=== PATIENT | male | born 1975 | race Caucasian/White ===

== ENCOUNTER 2019-09-08 15:06 | Emergency (ER) | payer MEDICAID, SELFPAY ==
[2019-09-08 15:09] VITALS: BP 161/90; PULSE 114; RESP 20; TEMP 36.8; O2SAT 96; BMI 21.4
--- NOTE | 2019-09-08 15:21 | RAD_ITS ---
STUDY: X-RAY CHEST REASON FOR EXAM: Male, 43 years old. Chest pain, weakness TECHNIQUE: Single AP portable view of the chest. COMPARISON: None. FINDINGS: The lungs are clear and expanded. Scattered calcified granulomas. There is no demonstrated pleural abnormality. Normal size heart. Normal mediastinum and les. Normal visualized pulmonary arteries. Normal visualized aortic arch and descending thoracic aorta. Normal visualized thoracic spine. Normal visualized ribs, clavicles, and shoulders. There is no demonstrated abnormality of the visualized soft tissue structures of the upper abdomen. RAD/Chest 1 View (Portable) IMPRESSION: Normal x-ray examination of the chest. Electronically Signed: Sal Freitas, at 15:50 EDT , Service support ,
--- NOTE | 2019-09-08 15:22 | EKG12_ITS ---
Test Reason : NUMBNESS Blood Pressure : / mmHG Vent. Rate : 090 BPM Atrial Rate : 090 BPM P-R Int : 132 ms QRS Dur : 080 ms QT Int : 352 ms P-R-T Axes : 077 034 046 degrees QTc Int : 430 ms Normal sinus rhythm Normal ECG Confirmed by LISA ADAMS, WILLEM ([id number]), commercial production editor PEE FIGUEROA ([id number]) on 09/15/2019 11:11:01 AM Referred By: KAMERON Confirmed By:ADITYA GONZALEZ MD
--- NOTE | 2019-09-08 15:24 | ED.DCSUM_ITS ---
History of Present Illness Chief Complaint: Weakness Informant: Patient Narrative: Resents with multiple complaints. In April he was having multiple nights of night sweats followed by chest pain with radiation down his left arm. He was admitted to the hospital in [place] and had a cardiac work-up that was unremarkable. He had a normal stress test at that time. Patient states since then has had intermittent pain in his chest. Over the past week he has noted throat tightness and he has a raw feeling or numbness over his chest. He is also complaining of some bilateral groin pain. He is concerned because his grandfather of kidney failure. He does report having a fever, but when asked T-max is 99.3. He is scheduled to see a new PCP in 2 days. Past Medical History - Allergies and Home Meds Allergies/Adverse Reactions: Allergies acetaminophen [From Vicodin] Adverse Reaction (Verified 09/08/19 15:09) Nausea hydrocodone [From Vicodin] Adverse Reaction (Verified 09/08/19 15:09) Nausea Past Medical History: None Lives: Spouse/ Significant Other Review of Systems General: Reports: Fever - T-max equals 99.3. Denies: Chills Eyes: Denies: Visual changes - bilaterally ENT: Denies: Bilateral ear pain Cardiovascular: Reports: Chest pain Respiratory: Denies: Dyspnea, Cough Gastrointestinal: Reports: Abdominal pain - Intermittent bilateral groin pain. Denies: Vomiting, Diarrhea Genitourinary: Denies: Dysuria, Hematuria Musculoskeletal: Denies: Swelling, Extremity Pain Skin: Denies: Rash Neurological: Denies: Headache Allergy: Denies: Uticaria Physical Exam Vital Signs/Narrative: Vital Signs Temp Pulse Resp BP Pulse Ox 09/08/19 15:09 98.2 F 114 H 20 H 161/90 H 96 Inital Vital Signs reviewed: Yes General: Well nourished, Well developed Head: Normocephalic ENT: Moist mucous membranes, TM's clear, - - Mild posterior pharyngeal erythema. Uvula midline. Neck: Supple Cardiovascular: Regular rate, Regular rhythm Respiratory: No distress, CTA bilaterally, Chest tenderness - Mild chest wall tenderness over the left and right upper chest wall. No crepitus. Abdomen: Soft, Nontender Extremities: Nontender Skin: Normal color, No rash Neurological: Alert, Oriented x3, Normal Strength, Normal Sensation Psychological: Normal affect Diagnostic/Tx/Re-eval Impressions Chest X-Ray 09/08/19 15:21 IMPRESSION: Normal x-ray examination of the chest. Electronically Signed: Sal Freitas, at 15:50 EDT , Service support , 09/08/19 15:21 Chest 1 View (Portable) [RAD] Stat 09/08/19 15:48 Mucosa - Throat Group A Streptococcus Rapid Screen - Final Streptococcus Group A Laboratory Results 09/08/19 09/08/19 15:40 15:40 WBC 9.1 RBC 5.32 Hgb 15.1 Hct 45.2 MCV 85.0 MCH 28.4 MCHC 33.4 RDW Std Deviation 39.4 RDW Coeff of Conor 12.7 Plt Count 260 MPV 9.2 Immature Gran % (Auto) 0.200 Neut % (Auto) 81.2 H Lymph % (Auto) 12.6 L Hancock % (Auto) 5.5 Eos % (Auto) 0.2 Baso % (Auto) 0.3 Absolute Neuts (auto) 7.4 Absolute Lymphs (auto) 1.14 Nucleated RBC % 0 ESR 20 H Sodium 138 Potassium 3.7 Chloride 104 Carbon Dioxide 27.0 Anion Gap 7 BUN 10 Creatinine 0.79 Estim Creat Clear Calc 91.86 Est GFR (MDRD) Af Amer 136 Est GFR (MDRD) Non-Af 112 BUN/Creatinine Ratio 12.7 Glucose 91 Calcium 8.9 Troponin I < 0.015 C-React Prot Ext Range 15.00 H - EKG Initial EKG Interpretation: Sinus Rhythm - Sinus at 90 with no acute ischemia. - Medical Decision Making Patient is given IV fluids. Test results discussed with patient and at bedside. Strep test is positive. He will be given amoxicillin x10 days. He will follow-up with Dr. Lu in 2 days as scheduled. ED Disposition - Plan for ED Patient: Disposition: Home or Assisted Living Diagnosis: Strep pharyngitis Instructions: PHARYNGITIS, Strep (Confirmed) Prescriptions: Amoxicillin 500 mg PO BID #20 tab Transmission Status: Pending to [facility] Referrals: Juan Lu MD [Primary Care Provider] - Keep F[facility] appointment
[2019-09-08 15:38] VITALS: PULSE 98; RESP 16; O2SAT 94
[2019-09-08] MEDS: 0.9% Normal Saline 1,000 ML 150 ML IV (15:43)
[2019-09-08 16:01] LABS: Absolute Lymphocyte Count 1.14 X10^3/uL (0.83-4.51); Absolute Neutrophil Count 7.4 X10^3/uL (2.0-7.7); Basophil# 0.03 X10^3/uL; Basophil% 0.3 % (0-1); Eosinophil# 0.02 X10^3/uL; Eosinophils% 0.2 % (0-5); Hematocrit 45.2 % (40-54); Hemoglobin 15.1 g/dL (13.0-16.5); Lymphocyte # 1.14 X10^3/ul (4.0); Lymphocyte % 12.6 % (19-41); Mean Corp Hgb Conc 33.4 g/dL (32-36); Mean Corpuscular Hgb 28.4 pg (27.0-32.0); Mean Platelet Vol. 9.2 fl (6.2-12.0); Monocyte% 5.5 % (0-10); NRBC Flagged by Analyzer 0 % (0-5); Neutrophil # 7.37 X10^3/uL (2.7-7.7); Neutrophil % 81.2 % (47-70); Platelet Count 260 K/mm3 (150-450); RBC Distribution Width CV 12.7 % (11.6-14.6); RBC Distribution Width SD 39.4 fl (35.1-43.9); Red Blood Count 5.32 M/mm3 (4.6-6.2); White Blood Count 9.1 K/mm3 (4.4-11.0)
[2019-09-08 16:14] LABS: Anion Gap 7 (5-15); BUN 10 mg/dL (7-18); BUN/Creat Ratio 12.7 RATIO (10-20); Calcium,Total 8.9 mg/dL (8.5-10.1); Chloride 104 mmol/L (98-107); Creatinine, Serum 0.79 mg/dL (0.70-1.30); EST Glomerular Filtration Rate 112 mL/min (>60); Est Glom Filt Rate - Afr Amer 136 mL/min (>60); Estimated Creatinine Clearance 91.86 ml/min; Glucose 91 mg/dL (74-106); Potassium 3.7 mmol/L (3.5-5.1); Sodium Level 138 mmol/L (136-145)
[2019-09-08 16:35] LABS: Erythrocyte Sedimentation Rate 20 mm/hr (0-15)
[2019-09-08 17:34] VITALS: BP 128/86; PULSE 89; RESP 17; O2SAT 96
--- NOTE | 2019-09-08 17:34 | ED.RN ---
PER DR. PÉERZ SEPSIS SCREEN D/C.
[2019-09-08] MEDS: AMOXICILLIN 500 MG CAPSULE PO (17:38)
== END 2019-09-08 17:43 | disposition home or self-care (01) ==
PROVIDERS: Emergency Provider Emergency Medicine; PCP Family Medicine
DX: J02.0 Streptococcal pharyngitis (principal); R07.9 Chest pain, unspecified; R61 Generalized hyperhidrosis; R10.31 Right lower quadrant pain; R10.32 Left lower quadrant pain; R20.0 Anesthesia of skin; Z88.5 Allergy status to narcotic agent
CPT/HCPCS: 71045; 80048; 84484; 85025; 85652; 86140; 87880; 93005; 96360; 96361; 99285; J7030

== ENCOUNTER → 2019-10-13 10:54 | Outpatient (CLI) | payer OTHER, SELFPAY ==
[2019-10-13 12:03] LABS: Erythrocyte Sedimentation Rate 6 mm/hr (0-15)
[2019-10-13 12:04] LABS: Absolute Lymphocyte Count 1.27 X10^3/uL (0.83-4.51); Basophil# 0.04 X10^3/uL; Basophil% 0.8 % (0-1); Eosinophil# 0.13 X10^3/uL; Eosinophils% 2.7 % (0-5); Hematocrit 44.7 % (40-54); Hemoglobin 14.9 g/dL (13.0-16.5); Lymphocyte # 1.27 X10^3/ul (4.0); Mean Corp Hgb Conc 33.3 g/dL (32-36); Mean Corpuscular Hgb 28.8 pg (27.0-32.0); Mean Corpuscular Volume 86.5 fL (80-94); Mean Platelet Vol. 9.6 fl (6.2-12.0); Monocyte# 0.39 X10^3/uL; NRBC Flagged by Analyzer 0 % (0-5); Neutrophil # 3.04 X10^3/uL (2.7-7.7); Neutrophil % 62.3 % (47-70); Platelet Count 247 K/mm3 (150-450); RBC Distribution Width CV 12.7 % (11.6-14.6); RBC Distribution Width SD 40.4 fl (35.1-43.9); Red Blood Count 5.17 M/mm3 (4.6-6.2); White Blood Count 4.9 K/mm3 (4.4-11.0)
[2019-10-13 12:29] LABS: ALB/GLOB Ratio 0.9 RATIO (0.9-2.4); AST(SGOT) 26 U/L (15-37); Alanine Aminotransfer ALT/SGPT 34 U/L (16-61); Albumin, Serum 3.7 g/dL (3.2-5.0); Alkaline Phosphatase 94 U/L (45-117); Anion Gap 7 (5-15); BUN 15 mg/dL (7-18); BUN/Creat Ratio 15.3 RATIO (10-20); CRP < 2.90 mg/L (0.0-3.0); Calcium,Total 8.9 mg/dL (8.5-10.1); Chloride 106 mmol/L (98-107); Creatinine, Serum 0.98 mg/dL (0.70-1.30); EST Glomerular Filtration Rate 88 mL/min (>60); Est Glom Filt Rate - Afr Amer 106 mL/min (>60); Globulin 3.9 g/dL (2.2-4.2); Glucose 96 mg/dL (74-106); Protein, Total 7.6 g/dL (6.4-8.2); Sodium Level 140 mmol/L (136-145); Thyroid Stim Hormone (TSH) 1.17 uIU/mL (0.358-3.74)
[2019-10-14 15:46] LABS: ANTINUCLEAR ANTIBODIES DIRECT Negative (Negative)
== END ==
PROVIDERS: PCP Family Medicine; Referring Provider Family Medicine; Visit Provider Family Medicine
DX: R22.1 Localized swelling, mass and lump, neck (principal); R79.82 Elevated C-reactive protein (CRP); R61 Generalized hyperhidrosis
CPT/HCPCS: 36415; 80053; 84403; 84443; 85025; 85652; 86038; 86140

== ENCOUNTER → 2019-12-22 15:15 | Outpatient (CLI) | payer OTHER, SELFPAY ==
--- NOTE | 2019-12-22 15:25 | RAD_ITS ---
STUDY: X-RAY - PELVIS AND RIGHT HIP REASON FOR EXAM: Male, 44 years old. RIGHT HIP PAIN. FALL DOWN STAIRS X 15 YEARS AGO TECHNIQUE: 3 views of the pelvis and hip. COMPARISON: None. FINDINGS: There is a non-specific bowel gas pattern. Normal visualized soft tissue structures. Normal bilateral iliac wings, sacroiliac joints and visualized sacrum. Normal bilateral superior and inferior pubic rami. Normal pubic symphysis. Normal bilateral ischial tuberosities. Normal visualized femoral head. Normal acetabulum. Normal hip joint. RAD/HIP, UNI W/ Pelvis 2-3 Views IMPRESSION: Normal x-ray examination of the pelvis and hip. Electronically Signed: Shayan Mccurdy MD at 16:14 EDT , Service support ,
--- NOTE | 2019-12-22 15:25 | RAD_ITS ---
STUDY: X-RAY - LUMBAR SPINE REASON FOR EXAM: Male, 44 years old. CHRONIC LOWER BACK PAIN. FALL DOWN STAIRS X 15 YEARS AGO TECHNIQUE: 5 view(s) of the lumbar spine were obtained. COMPARISON: None FINDINGS: Normal lumbar lordosis. There is no substantial scoliosis. There is a normal alignment of the vertebrae. There is mild endplate spondylosis of L4 and L5. There is narrowing of the L5-S1 disc space. The soft tissue structures are unremarkable. RAD/L/S Spine Min 4 Views IMPRESSION: Mild endplate spondylosis of L4 and L5. Narrowing of the L5-S1 disc space. Electronically Signed: Shayan Mccurdy MD at 16:14 EDT , Service support ,
== END ==
PROVIDERS: PCP Family Medicine; Referring Provider Chiropractor; Visit Provider Chiropractor
DX: M25.551 Pain in right hip (principal); M54.5 Low back pain
CPT/HCPCS: 72110; 73502

== ENCOUNTER → 2020-07-01 10:01 | Outpatient (CLI) | payer OTHER, SELFPAY ==
[2020-07-01 13:09] LABS: Cholesterol 213 mg/dL (200); Free T3 3.3 pg/mL (2.18-3.98); High Density Lipoprotein 53 mg/dL; T4 Free Direct 1.13 ng/dL (0.76-1.46); Thyroid Stim Hormone (TSH) 2.05 uIU/mL (0.358-3.74); Triglycerides 68 mg/dL; Very Low Density Lipoprotein 14 mg/dL (5-40)
== END ==
PROVIDERS: PCP Family Medicine; Referring Provider Family Medicine; Visit Provider Family Medicine
DX: E07.9 Disorder of thyroid, unspecified (principal); E55.9 Vitamin D deficiency, unspecified; Z13.220 Encounter for screening for lipoid disorders
CPT/HCPCS: 36415; 80061; 82306; 84439; 84443; 84481

== ENCOUNTER → 2021-04-20 07:12 | Outpatient (CLI) | payer MEDICAID, SELFPAY ==
--- NOTE | 2021-04-20 07:17 | MRI_ITS ---
STUDY: MRI LUMBAR SPINE WITHOUT CONTRAST REASON FOR EXAM: Male, 45 years old. LUMBAGO WITH SCIATICA TECHNIQUE: Standardized fat and water weighted pulse sequences were obtained in the sagittal and axial planes. COMPARISON: X-ray 12/22/2019 FINDINGS: T12-L1: Normal endplates. Normal disc height, hydration and morphology. Normal bilateral facet joints. Normal central canal and bilateral lateral recesses. Normal bilateral intervertebral neural foramina. Normal lumbar lordosis. There is no substantial scoliosis. Normal conus medullaris that terminates at the L1. L1-2: Normal endplates. Normal disc height, hydration and morphology. Normal bilateral facet joints. Normal central canal and bilateral lateral recesses. Normal bilateral intervertebral neural foramina. L2-3: Normal endplates. Normal disc height, hydration and morphology. Normal bilateral facet joints. Normal central canal and bilateral lateral recesses. Normal bilateral intervertebral neural foramina. L3-4: Normal endplates. Normal disc height, hydration and morphology. Normal bilateral facet joints. Normal central canal and bilateral lateral recesses. Normal bilateral intervertebral neural foramina. L4-5: Normal endplates. Normal disc height, hydration and morphology. Normal bilateral facet joints. Normal central canal and bilateral lateral recesses. Normal bilateral intervertebral neural foramina. L5-S1: Mild bilateral facet hypertrophy with fluid in the facet joints consistent with instability. 2 mm retrolisthesis of L5 on S1 with a moderate broad disc protrusion reduces moderate spinal stenosis with moderate bilateral lateral recess stenosis with abutment of the S1 nerve roots bilaterally and moderate bilateral neural foraminal stenosis with abutment of the exiting L5 nerve roots bilaterally. Normal visualized sacral ala. Normal visualized paraspinous soft tissue structures. MRI/Spine Lumbar (Routine) IMPRESSION: Focal degenerative disc disease at L5/S1 as described above. Electronically Signed: Gurpreet Gallardo MD at 15:45 EDT Tel , Service support ,
== END ==
PROVIDERS: PCP Family Medicine; Referring Provider Family Medicine; Visit Provider Family Medicine
DX: M54.40 Lumbago with sciatica, unspecified side (principal)
CPT/HCPCS: 72148

== ENCOUNTER 2021-06-02 16:50 | Outpatient (RCR) | payer MEDICAID, SELFPAY ==
--- NOTE | 2021-06-02 18:13 | HP.PTEVAL ---
Patient's Visit Information BETTE SARABIA is a 45 year old M referred to Physical Therapy by Dr. Shayan Gama DC with a diagnosis of LUMBAR DISC HERNIATION. Date of Evaluation: 06/02/21 Physical Therapist: Kiko Jarvis, PT, Cert MDT, OCS - Visit Plan Frequency: 2x /Week Duration: 4 Weeks Plan: PT INTERVETIONS SUSAN EX'S,DLS ,POSTURAL EX'S AND MODALTIES - Subjective This 45b y/o male presents to physical therapy with lumbar radiculopathy. Patient has lumbar pain with radicular symptoms many years. Had a fall down stairs and lifting heavy. Patient pain worse most recently noticed radicular symptoms in leg. Initially, seen chiropractor did not help. RTD had MRI showed protrusion/grade [address] Lopez recommended fusion. Pain located symmetrical buttock -hamstrings-calf. Patient c/o spasms and numbness. Aggravating factors bending, lifting, sitting , walking and standing in the morning. Alleviating rest. No meds. Patient had MRI showed HNP and grade 2 retrolisthesis. Coughing/sneezing-. Bowel/bladder - Pain affects sleeping. No abnormal night pain. No prior PT . Patient also noticed weakness in right leg. Patient symptoms affects QOL ,function ,ADL's and job demands. SOCIAL: . VOCATION: [employer] - Pain Bilateral Back Pain Intensity (Out of 10): 8 Pain Intensity Range: 10 Right Lower Extremity Pain Intensity (Out of 10): 8 Pain Intensity Range: 10 - Objective POSTURE: mild forward guarded position. GAIT: reciprocal pattern mild forward posture antalgic gait right side. SYMMTRIES: align. NEURO: denies paresthesia/tingling , reflexes 3/3 Achilles ,patella. LUMBAR ROM: flexion mod/severe loss - Special Tests L/S Slump test left side: Negative L/S Slump test right side: Positive L/S Left Straight Leg Raise: Negative L/S Right Straight Leg Raise: Positive Lumbar Standing: Flexion - Mechanical Response: No effect Lumbar Standing: Flexion - Symptoms During Testing: Peripheralizing Lumbar Standing: Flexion - Symptoms After Testing: Worse Lumbar Standing: Extension - Mechanical Response: No effect Lumbar Standing: Extension - Symptoms During Testing: Peripheralizing Lumbar Standing: Extension - Symptoms After Testing: Worse Lumbar Standing: Right Side Glides - Mechanical Response: No effect Lumbar Standing: Right Side Pengilly - Symptoms During Testing: Increases Lumbar Standing: Right Side Pengilly - Symptoms After Testing: Worse Lumbar Standing: Left Side Pengilly - Mechanical Response: No effect Lumbar Standing: Left Side Pengilly - Symptoms During Testing: No effect Lumbar Standing: Left Side Pengilly - Symptoms After Testing: No effect Lumbar Lying: Flexion - Mechanical Response: No effect Lumbar Lying: Flexion - Symptoms During Testing: Increases Lumbar Lying: Flexion - Symptoms After Testing: Worse Lumbar Lying: Extension - Mechanical Response: No effect Lumbar Lying: Extension - Symptoms During Testing: Increases Lumbar Lying: Extension - Symptoms After Testing: No worse - Balance/Special Test Scores Oswestry Low Back Score: 33 - Goals Goal 1:: I with HEP for back pain Goal Time Frame: 4-6 Weeks Goal 2:: Patient to improve posture/body mechanics Goal Time Frame: 4-6 Weeks Goal 3:: Patient to demonstrate 50% improvement with reduced symptoms back and right leg to improve function Goal Time Frame: 4-6 Weeks Goal 4:: Patient to improve back owestry score by 5 points or > to improve QOL and function Goal Time Frame: 4-6 Weeks Goal 5:: Patient to improve lumbar ROM for function of recovery Goal Time Frame: 4-6 Weeks - Rehabilitation Potential Physical Therapy Diagnosis: This patient has lumbar derangement below knee with disc along with stenosis causing pain with positioning, test movements walking bending and affects job demands thus will need skilled PT Rehabilitation Potential: Good - Anticipated Interventions Patient/Client Instruction: Educate patient on: Condition, Plan of Care For the Purpose of:: To decrease pain, To increase ROM, To improve muscle performance and motor function, To increase tolerance to activity/condition/position, To improve performance and independence with ADL's, To improve ability of physical actions for home/community/work/leisure, To improve health of tissue, To decrease soft tissue restriction, To increase flexibility/ROM, To reduce risk of recurrence, To prevent re-injury Therapeutic Exercise to Include: Strength training, Body mechanics, Postural training, Flexibilty training, Active ROM, Dynamic Lumbar Stabilization, Susan Exercises For the Purpose of:: To decrease pain, To increase ROM, To improve muscle performance and motor function, To improve ability to perform ADL's, To increase tolerance to activity/condition/position, To improve ability of physical actions for home/community/work/leisure, To improve health of tissue, To decrease soft tissue restriction, To increase flexibility/ROM, To reduce risk of recurrence, To prevent re-injury TENS: Yes IF ES: Yes Cryotherapy (ice pack, ice massage): Yes Thermo therapy (hot pack): Yes Ultrasound (thermal/non thermal): Yes For the Purpose of:: To decrease pain, To increase ROM, To improve nutrient delivery to tissue, To increase oxygenation perfusion, To improve health of tissue, To decrease soft tissue restriction Thank you for the opportunity to evaluate your patient. For Medicare and Medicare HMO plans, please review the plan of care and approve it. It will need to be FAXED BACK to us at [phone] for Medicare purposes. For Medicare only, by signing this I certify the plan of care. Please let me know if there are questions or concerns regarding this plan of care. Physician Signature: Date:
--- NOTE | 2021-08-17 09:18 | HP.PTDCNRP_ITS ---
BETTE SARABIA was seen in my office for initial evaluation on 06/02/21. The following Plan of Care was established for this patient: Initial Frequency: 2x /Week Initial Duration: 4 Weeks Patient/Client Instruction: Educate patient on: Condition, Plan of Care For the Purpose of:: To decrease pain, To increase ROM, To improve muscle performance and motor function, To increase tolerance to activity/condition/position, To improve performance and independence with ADL's, To improve ability of physical actions for home/community/work/leisure, To improve health of tissue, To decrease soft tissue restriction, To increase flexibility/ROM, To reduce risk of recurrence, To prevent re-injury Therapeutic Exercise to Include: Strength training, Body mechanics, Postural training, Flexibilty training, Active ROM, Dynamic Lumbar Stabilization, Lucian Exercises For the Purpose of:: To decrease pain, To increase ROM, To improve muscle performance and motor function, To improve ability to perform ADL's, To increase tolerance to activity/condition/position, To improve ability of physical actions for home/community/work/leisure, To improve health of tissue, To decrease soft tissue restriction, To increase flexibility/ROM, To reduce risk of recurrence, To prevent re-injury TENS: Yes IF ES: Yes Cryotherapy (ice pack, ice massage): Yes Thermo therapy (hot pack): Yes Ultrasound (thermal/non thermal): Yes For the Purpose of:: To decrease pain, To increase ROM, To improve nutrient de livery to tissue, To increase oxygenation perfusion, To improve health of tissue, To decrease soft tissue restriction This patient was last seen in our office . Pertinent comments regarding their Physical therapy will appear below: Patient seen for [facility] for HEP. At this point I will be discontinuing this patient from physical therapy. I would be happy to see this patient again in the future if found appropriate by the physician. Thank you! Kiko Jarvis, PT, Cert MDT, OCS Balance/Gait/Functional tests - Balance/Special Test Scores Oswestry Low Back Score: 33
== END 2021-06-02 19:00 | disposition home or self-care (01) ==
LOC: PT 16:50
PROVIDERS: PCP Family Medicine; Referring Provider Chiropractor; Visit Provider Chiropractor
DX: M51.26 Other intervertebral disc displacement, lumbar region (principal)
CPT/HCPCS: 97110; 97161

== ENCOUNTER 2021-12-22 14:45 | Emergency (ER) | payer MEDICAID, SELFPAY ==
[2021-12-22 14:47] VITALS: BP 136/93; PULSE 130; RESP 18; TEMP 37.4; O2SAT 98; BMI 22.2
[2021-12-22 14:54] VITALS: O2SAT 99
--- NOTE | 2021-12-22 15:17 | EX.ED.VIS.UR ---
HPI HPI - URI History of Present Illness Chief Complaint: Shortness of Breath Narrative Narrative: 46-year-old male presenting with mild cough, fever, chills, body since last evening. He has taken ibuprofen for his pain and his body aches. Patient states he does have some mild shortness of breath. He did not have any chest pain. He states his daughter was sick a few days ago. He thinks this is how he caught a cold. He thinks he has the flu. He called his primary care doctor who sent him to the emergency room for evaluation. Patient states he only has degenerative disc disease and no other medical problems. He has some mild nausea but has been able to eat and drink. ROS ROS ED Constitutional Constitutional ED: Reports chills and fever(s) Eyes Eyes: Denies change in vision or diplopia ENT ENT ED: Reports sore throat; Denies rhinorrhea Cardiovascular Cardiovascular: Denies chest pain or palpitations Respiratory/Chest Respiratory/Chest: Reports cough and dyspnea Gastrointestinal Gastrointestinal: Reports nausea; Denies abdominal pain, constipation or diarrhea Genitourinary Genitourinary ED: Denies dysuria or hematuria Musculoskeletal Musculoskeletal: Reports myalgias Integumentary Denies abscess or Abrasions Neurologic Neurologic: Reports headache(s); Denies paresthesias or weakness PFSH PFSH Medical History no medical history Home Medications ondansetron 4 mg disintegrating tablet 4 mg PO Q8H PRN nausea and vomiting #14 tabs 12/22/21 [Rx Last Taken Unknown] Allergy/AdvReac Type Severity Reaction Status Date / Time acetaminophen [From Vicodin] AdvReac Nausea Verified 12/22/21 14:46 hydrocodone [From Vicodin] AdvReac Nausea Verified 12/22/21 14:46 Family History Father Myocardial infarction Diabetes Kidney disease Grandmother Cancer Surgical History Hx of elbow surgery Social History Smoking Status: Never smoker EXAM Physical Exam Const Vital Signs: 12/22/21 14:47 12/22/21 15:07 12/22/21 15:38 Temperature 99.3 F H 101.6 F H Temperature Source Temporal Oral Pulse Rate 130 H Respiratory Rate 18 Respiratory Effort Normal Non-Labored Respiratory Depth Normal Respiratory Pattern Normal Blood Pressure 136/93 H Blood Pressure Mean 107 Pulse Ox 98 Oxygen Delivery Method Room Air 12/22/21 16:34 Temperature Temperature Source Pulse Rate 104 H Respiratory Rate 18 Respiratory Effort Respiratory Depth Respiratory Pattern Blood Pressure 124/74 H Blood Pressure Mean Pulse Ox 95 Oxygen Delivery Method Positive well nourished General Appearance ED: NAD; Negative for pallor HEENT Reports moist mucous membranes normocephalic Throat: posterior oropharynx normal Eyes PERRL General Eye ED: Negative for pale conjunctiva or scleral icterus Neck no lymphadenopathy Resp normal respiratory effort and clear to auscultation bilaterally Effort and Inspection: Negative for retractions Auscultation: Negative for rales, rhonchi, wheezes or diminished lung sounds Cardio Rate: tachycardic Rhythm: regular rhythm GI Inspection: Negative for abdominal distention Neuro oriented x3 and CN's II-XII intact bilaterally Sensorium / Orientation: alert, oriented to person, oriented to place and oriented to time Psych mental status grossly normal Mood & Affect: Negative for depressed or anxious Skin General Skin Exam: Negative for jaundice or pallor MDM MDM MDM Narrative Medical decision making narrative: Patient presenting with fever, chills, body aches, reporting mild shortness of breath. On examination his lungs are clear to auscultation. His heart rate was initially tachycardic at 130. I checked a bedside temperature with an oral thermometer nurse temperature was 101.6 which is likely why he is tachycardic. He was given Tylenol 1 g. He was given Zofran for his nausea. I tested him for COVID-19 and influenza which were both negative. I did offer to test him with a COVID PCR but he declines. He states he would not take Paxlovid even if he tested positive for COVID-19. I counseled him on oral hydration. He is given Zofran to help with this. He is to alternate Tylenol and ibuprofen. I believe his symptoms are likely viral as his daughter had a cold prior to his. He was given return precautions. Impression: 1. Viral syndrome Lab Data Attestation: I reviewed the patient's lab results. Discharge Plan Triage Chief Complaint: Shortness of Breath ED Provider: Jed Diaz Dx/Rx/DC Orders Instructions: ED Viral Syndrome (Adult) Prescriptions: New ondansetron 4 mg tablet,disintegrating 4 mg PO Q8H PRN (Reason: nausea and vomiting) Qty: 14 0RF Primary Care Provider: Juan Lu Referrals: Juan Lu MD [Primary Care Provider] - Disposition Disposition: Home, Self Care Discharge Date/Time: 12/22/21 16:34
[2021-12-22] MEDS: Acetaminophen 500 MG Tablet 1000 MG PO (15:26)
[2021-12-22] MEDS: Ondansetron ODT 4 MG Tablet PO (15:27)
[2021-12-22 15:38] VITALS: TEMP 38.7
[2021-12-22 16:34] VITALS: BP 124/74; PULSE 104; RESP 18; O2SAT 95
== END 2021-12-22 16:34 | disposition home or self-care (01) ==
PROVIDERS: Emergency Provider Student in an Organized Health Care Education/Training Program; PCP Family Medicine; Visit Provider Student in an Organized Health Care Education/Training Program
DX: B34.9 Viral infection, unspecified (principal); R06.00 Dyspnea, unspecified; R50.9 Fever, unspecified; Z20.822 Contact with and (suspected) exposure to COVID-19; R00.0 Tachycardia, unspecified; R11.0 Nausea; R05.9 Cough, unspecified
CPT/HCPCS: 87428; 99283; A4216

== ENCOUNTER → 2022-03-01 | Outpatient (CLI) | payer MEDICAID, SELFPAY ==
--- NOTE | 2022-03-01 17:05 | RAD_ITS ---
HISTORY: DDD. TECHNIQUE: XR Spine Lumbar Comp W/ Bending Min 6 Views. COMPARISON: 05/18/2021. FINDINGS: VERTEBRAE: Vertebral body heights preserved. Degenerative changes of the posterior elements. ALIGNMENT: No significant anterior or posterior subluxation. INTERVERTEBRAL DISCS: Degenerative endplate change with vacuum disc phenomenon and moderate intervertebral disc space narrowing of L5-S1, progressed from prior. SOFT TISSUES: Moderate stool in the colon. RAD/L/S Spine Comp/w Bending Views IMPRESSION: No acute fracture or dislocation identified in the lumbar spine. L5-S1 spondylosis. Electronically Signed: Renetta Nunez MD at 8:38 EDT ,
== END | disposition home or self-care (01) ==
LOC: MTRAD 16:58
PROVIDERS: PCP Family Medicine; Referring Provider Family Medicine; Visit Provider Family Medicine
DX: M51.36 Other intervertebral disc degeneration, lumbar region (principal)
CPT/HCPCS: 72114

== ENCOUNTER → 2023-01-30 | Outpatient (CLI) | payer MEDICAID, SELFPAY ==
--- NOTE | 2023-01-30 16:45 | CT_ITS ---
STUDY: CT CHEST WITHOUT CONTRAST REASON FOR EXAM: Male, 47 years old. LUNG NODULE RADIATION DOSAGE (If Supplied By Facility): CTDIvol = ( 6.91 ) mGy, DLP = ( 252.13 ) mGycm TECHNIQUE: Transaxial imaging was performed without the administration of intravenous contrast material. Multiplanar coronal and sagittal images were reformatted. Individualized dose optimization techniques were used for this CT. COMPARISON: No relevant priors. FINDINGS: CHEST Fat-containing bilateral axillary lymph nodes are seen. There is a 5.1 mm x 5.1 mm noncalcified nodule in the anterior aspect of the left upper lobe as seen on axial image #72 and coronal image #79. There is no demonstrated pleural abnormality. Normal heart and pericardium. There are small lymph nodes within the mediastinum, which are normal in size and morphology most compatible with reactive lymph hyperplasia. Normal hilar regions. Normal unenhanced pulmonary arteries. Normal aorta arch and descending thoracic aorta. Normal osseous structures. There is no demonstrated abnormality of the visualized upper abdomen. CT/Chest without Contrast IMPRESSION: 5.1 mm x 5.1 mm noncalcified nodule in the anterior aspect of the left upper lobe. 12 month follow-up examination is recommended. Electronically Signed: Sal Freitas MD at 14:50 EDT ,
== END | disposition home or self-care (01) ==
PROVIDERS: PCP Family Medicine; Referring Provider Family Medicine; Visit Provider Family Medicine
DX: R91.1 Solitary pulmonary nodule (principal)
CPT/HCPCS: 71250

== ENCOUNTER → 2023-02-01 | Outpatient (CLI) | payer MEDICAID, SELFPAY ==
[2023-02-01 17:55] LABS: Hematocrit 45.6 % (40-54); Hemoglobin 15.1 g/dL (13.0-16.5); Mean Corp Hgb Conc 33.1 g/dL (32-36); Mean Corpuscular Hgb 29.2 pg (27.0-32.0); Mean Platelet Vol. 9.4 fl (6.2-12.0); Platelet Count 276 K/mm3 (150-450); RBC Distribution Width CV 11.9 % (11.6-14.6); RBC Distribution Width SD 38.5 fl (35.1-43.9); Red Blood Count 5.18 M/mm3 (4.6-6.2); White Blood Count 5.1 K/mm3 (4.4-11.0)
[2023-02-01 18:10] LABS: Prothrombin Time (Protime)PT. 13.5 SECONDS (11.7-14.9)
[2023-02-01 18:24] LABS: Anion Gap 6 (5-15); BUN 13 mg/dL (7-18); BUN/Creat Ratio 15.3 RATIO (10-20); Calcium,Total 8.9 mg/dL (8.5-10.1); Chloride 104 mmol/L (98-107); Creatinine, Serum 0.85 mg/dL (0.70-1.30); EST Glomerular Filtration Rate 102 mL/min (>60); Est Glom Filt Rate - Afr Amer 123 mL/min (>60); Glucose 88 mg/dL (74-106); Potassium 3.8 mmol/L (3.5-5.1); Sodium Level 137 mmol/L (136-145); Thyroid Stim Hormone (TSH) 1.89 uIU/mL (0.358-3.74)
== END | disposition home or self-care (01) ==
LOC: MTLAB 16:57
PROVIDERS: PCP Family Medicine; Visit Provider Family Medicine
DX: Z01.818 Encounter for other preprocedural examination (principal); E07.9 Disorder of thyroid, unspecified
CPT/HCPCS: 36415; 80048; 84443; 85027; 85610

== ENCOUNTER → 2023-05-29 | Outpatient (CLI) | payer MEDICAID, SELFPAY ==
--- NOTE | 2023-05-29 12:36 | RAD_ITS ---
INDICATION: LUMBAGO WITH SCIATICA EXAMINATION/TECHNIQUE: X-RAY - XR Spine Lumbar Comp W/ Bending Min 6 Views COMPARISON: FINDINGS: VERTEBRAE: Preserved vertebral body height. Mild spurring at L4-5 and S1. No fracture. No spondylolisthesis. Preservation of the normal lumbar lordosis. No significant facet arthropathy. DISCS: Narrowed L5-S1 disc space. INCLUDED ABDOMEN: Included bowel gas pattern is non-obstructive. RAD/L/S Spine w Bend Min 6 Vw IMPRESSION: Degenerative changes at the lumbosacral junction. Electronically Signed: Amandeep Saleh DO at 21:22 EST Reading Location ID and State: [facility] / [place] Tel [phone], Service support ,
== END | disposition home or self-care (01) ==
LOC: MTRAD 12:33
PROVIDERS: PCP Family Medicine; Referring Provider Family Medicine; Visit Provider Family Medicine
DX: M54.40 Lumbago with sciatica, unspecified side (principal)
CPT/HCPCS: 72114

== ENCOUNTER → 2023-07-12 | Outpatient (CLI) | payer MEDICAID, SELFPAY ==
[2023-07-12 18:35] LABS: HIV - WCH Non-Reactive (Nonreactive); Hepatitis B Surface Antigen Non-Reactive (Nonreactive); Hepatitis C Antibody Non-Reactive (Nonreactive); Syphilis Antibodies Non-reactive
== END | disposition home or self-care (01) ==
LOC: MTLAB 14:58
PROVIDERS: PCP Family Medicine; Referring Provider Obstetrics & Gynecology Reproductive Endocrinology; Visit Provider Obstetrics & Gynecology Reproductive Endocrinology
DX: Z11.59 Encounter for screening for other viral diseases (principal); Z11.4 Encounter for screening for human immunodeficiency virus [HIV]
CPT/HCPCS: 36415; 86703; 86780; 86803; 87340